=== PATIENT | male | born 1960 | race Caucasian/White ===

== ENCOUNTER 2020-10-31 11:36 | Emergency (ER) | payer BC | END 2020-10-31 12:09 | disposition home or self-care (01) | LOC: JVIRT 11:36 | DX: Z11.52 Encounter for screening for COVID-19 (principal) | CPT/HCPCS: G2012-GT ==

== ENCOUNTER 2021-08-21 07:55 | Day surgery (SDC) | payer BC ==
[2021-08-17 14:05] VITALS: BMI 24.3
[2021-08-21 08:29] VITALS: TEMP 97.4
[2021-08-21] MEDS ORDERED: LIDOCAINE HCL/PF 2% SDV 5ML VIAL ONE (08:36)
[2021-08-21] MEDS ORDERED: PROPOFOL 20 ML ONE ×2 (08:36)
[2021-08-21 09:45] VITALS: BP 114/61; PULSE 79
== END 2021-08-21 10:00 | disposition home or self-care (01) ==
LOC: FASU-ENDO 07:55
PROVIDERS: ATTEND Internal Medicine Gastroenterology
PROC: 0DBK8ZX Excision of Ascending Colon, Via Natural or Artificial Opening Endoscopic, Diagnostic (ICD-10-PCS; 2021-08-21)
PROC: 0DBM8ZX Excision of Descending Colon, Via Natural or Artificial Opening Endoscopic, Diagnostic (ICD-10-PCS; principal; 2021-08-21 09:15)
DX: Z12.11 Encounter for screening for malignant neoplasm of colon (principal); D12.2 Benign neoplasm of ascending colon; D12.4 Benign neoplasm of descending colon; K57.30 Diverticulosis of large intestine without perforation or abscess without bleeding